=== PATIENT | female | born 1930 | race Caucasian/White ===

== ENCOUNTER → 2017-01-18 | Outpatient (CLI) | payer MEDICARE ==
[2017-01-18 06:30] LABS: BASOPHILS # (AUTO) 0.1 T/MM3 (0-0.2); BASOPHILS % (AUTO) 1.1 % (0-2); EOSINOPHILS # (AUTO) 0.1 T/MM3 (0-0.5); EOSINOPHILS % (AUTO) 1.8 % (0-4); HCT - HEMATOCRIT 34.5 % (36-46); HGB - HEMOGLOBIN 10.7 GM/DL (12-16); IMMATURE GRANULOCYTE # (AUTO) 0.01 T/MM3 (0.00-0.03); IMMATURE GRANULOCYTE % (AUTO) 0.2 % (0.0-0.5); LYMPHOCYTES # (AUTO) 3.1 T/MM3 (1-4.8); MEAN CORPUSCULAR HGB 31.4 UUG (26-34); MEAN CORPUSCULAR VOLUME 101.2 UM3 (80-100); MEAN PLATELET VOLUME 10.9 UM3 (9.4-12.4); MONOCYTES # (AUTO) 0.8 T/MM3 (0-0.8); MONOCYTES % (AUTO) 14.6 % (0-9.0); NEUTROPHILS #(AUTO)-ABSOLUTE 1.5 T/MM3 (1.8-7.7); NEUTROPHILS % (AUTO) 26.3 % (33-66); RED BLOOD COUNT 3.41 M/MM3 (4.00-5.20); WBC - WHITE BLOOD COUNT 5.6 T/MM3 (4.5-11.0)
== END ==
LOC: LABNH.BH 06:22
PROVIDERS: ATTEND Family Medicine
DX: I10 Essential (primary) hypertension (principal)
CPT/HCPCS: 36415; 85025; P9604

== ENCOUNTER → 2017-03-19 | Outpatient (CLI) | payer MEDICARE, MEDICAID | LOC: LABNH.BH 05:38 | PROVIDERS: ATTEND Family Medicine | DX: E03.9 Hypothyroidism, unspecified (principal) | CPT/HCPCS: 36415; 84443; P9604 ==